=== PATIENT | female | born 1950 | race African-American/Black ===

== ENCOUNTER 2021-03-14 14:37 | Emergency (ER) | payer OTHER ==
[2021-03-14] MEDS ORDERED: NA CHLORIDE 0.9% 500 ML ONE (15:34)
[2021-03-14 15:37] LABS: Absolute Lymphocytes (CBC) 1.3 K/uL (0.7-4.9); Basophils % 0.1 % (0-1.3); Lymphocytes % 10.1 % (15.3-44.8); MPV 7.1 fL (7.6-11.3); RBC Red Blood Cell Count 2.11 M/uL (3.86-4.86)
[2021-03-14 15:47] LABS: Hematocrit 19.9 % (36.0-45.0)
[2021-03-14 15:54] LABS: Albumin 3.5 g/dL (3.4-5.0); Bilirubin Total 0.4 mg/dL (0.2-1.0); Potassium 4.2 mmol/L (3.5-5.1)
--- NOTE | 2021-03-14 16:00 | RAD REPORT ---
EXAM DESCRIPTION: RAD - Chest Single View - 03/14/2021 3:52 pm CLINICAL HISTORY: COUGH Chest pain. COMPARISON: No comparisons FINDINGS: Portable technique limits examination quality. The lungs are grossly clear. The heart is normal in size. No displaced fractures.Left-sided port cath eter with its tip in the region of the SVC/ right atrium junction. IMPRESSION: No acute intrathoracic process suspected.
--- NOTE | 2021-03-14 17:16 | ER ---
Nurse's Notes [facility] Name: Dennis Turk Age: 70 yrs Sex: Female : 1950 Arrival Date: 03/14/2021 Time: 14:41 Bed 7 Private MD: Diagnosis: Anemia, unspecified Presentation: 03/14 14:44 Chief complaint: Patient states: sent to ER for low hgb-6.8. Has been doing sv chemotherapy recently. Coronavirus screen: Client denies travel out of the [place] in the last 14 days. At this time, the client does not indicate any symptoms associated with coronavirus-19. The client reports previous COVID testing was negative. Date of collection: March 13, 2021. Ebola Screen: No symptoms or risks identified at this time. Initial Sepsis Screen: Does the patient meet any 2 criteria? HR > 90 bpm. No. Patient's initial sepsis screen is negative. Does the patient have a suspected source of infection? No. Patient's initial sepsis screen is negative. Risk Assessment: Do you want to hurt yourself or someone else? Patient reports no desire to harm self or others. Onset of symptoms was March 14, 2021. 14:44 Method Of Arrival: Ambulatory sv 14:44 Acuity: RICHA 2 sv Triage Assessment: 14:47 General: Appears in no apparent distress. comfortable, Behavior is calm, cooperative, sv appropriate for age. Pain: Denies pain. Neuro: Level of Consciousness is awake, alert, obeys commands, Oriented to person, place, time, situation, Gait is steady. Respiratory: Respiratory effort is even, unlabored. Historical: - Allergies: 14:47 No Known Allergies; sv - PMHx: 14:47 breast cancer; w/ recurrence; sv - PSHx: 14:47 right mastectomy; sv - Immunization history:: Client reports receiving the 2nd dose of the Covid vaccine, Client reports receiving the 1st dose of the Covid vaccine. - Social history:: Smoking status: Patient denies any tobacco usage or history of. - Family history:: not pertinent. Screenin:50 Abuse screen: Denies threats or abuse. Nutritional screening: No deficits noted. em Tuberculosis screening: No symptoms or risk factors identified. Fall Risk None identified. Assessment: 15:00 General: Appears in no apparent distress. comfortable, Behavior is calm, cooperative, em appropriate for age. Pain: Denies pain. Neuro: Level of Consciousness is awake, alert, obeys commands, Oriented to person, place, time, situation. Cardiovascular: Capillary refill < 3 seconds Patient's skin is warm and dry. Respiratory: Airway is patent Respiratory effort is even, unlabored, Respiratory pattern is regular, symmetrical. GI: Abdomen is flat, Reports nausea, Patient currently denies bloody stool. Derm: Skin is intact, is thin, Skin is pale, Skin temperature is warm. Musculoskeletal: Capillary refill < 3 seconds, Range of motion: intact in all extremities. 16:00 Reassessment: Patient appears in no apparent distress at this time. Patient and/or hb family updated on plan of care and expected duration. Pain level reassessed. Patient is alert, oriented x 3, equal unlabored respirations, skin warm/dry/pink. 17:27 Reassessment: Discharge ordered. awaiting PRBCs from blood bank and transfusion at this hb time. 19:00 General: Appears in no apparent distress. comfortable, Behavior is calm, cooperative, ea appropriate for age. Pain: Denies pain. Neuro: Level of Consciousness is awake, alert, obeys commands, Oriented to person, place, time, situation. Cardiovascular: Patient's skin is warm and dry. Respiratory: Airway is patent Respiratory effort is even, unlabored, Respiratory pattern is regular, symmetrical. Derm: Skin is intact, is thin, Skin is pale, Skin temperature is warm. Musculoskeletal: Range of motion: intact in all extremities. 19:04 Reassessment: Alberto [phone]. hb 20:00 Reassessment: Patient and/or family updated on plan of care and expected duration. Pain ea level reassessed. Pt alert and O x 3. Respirations even and unlabored, chest expansions even and symmetrical. Awaiting on transfusion to complete. 21:30 Reassessment: Patient and/or family updated on plan of care and expected duration. Pain ea level reassessed. Pt alert and O x 3. Respirations even and unlabored, chest expansions even and symmetrical. Awaiting on transfusion to complete. 22:30 Reassessment: Patient and/or family updated on plan of care and expected duration. Pain ea level reassessed. Pt resting with eyes closed. Respirations even and unlabored, chest expansions even and symmetrical. Awaiting on transfusion to complete. 23:31 Reassessment: Patient and/or family updated on plan of care and expected duration. Pain ea level reassessed. Pt alert and O x 3. Respirations even and unlabored, chest expansions even and symmetrical. Transfusion completed, pt tolerated well. Discharge instruction given to patient and family, both verbalized the understanding of instruction. Pt left ED via wheelchair accompanied by family, pt assisted to private vehicle per ED staff, pt tolerated well. Vital Signs: 14:44 BP 127 / 63; Pulse 120; Resp 18; Temp 98(O); Pulse Ox 100% on R/A; Weight 5.9 kg; sv Height 5 ft. 2 in. (157.48 cm); Pain 0/10; 16:18 BP 110 / 63; Pulse 83; Resp 19; Pulse Ox 100% on R/A; em 17:00 BP 99 / 51; Pulse 79; Resp 16; Pulse Ox 97% on R/A; hb 19:00 BP 94 / 56; Pulse 91; Resp 18; Temp 97.7; Pulse Ox 100% ; ea 20:20 BP 94 / 55; Pulse 80; Resp 16; Temp 97.6; Pulse Ox 100% ; ea 21:30 BP 98 / 58; Pulse 88; Resp 18; Pulse Ox 100% ; ea 23:15 BP 104 / 55; Pulse 80; Resp 18; Pulse Ox 99% on R/A; ea 14:44 Body Mass Index 2.38 (5.90 kg, 157.48 cm) sv ED Course: 14:41 Patient arrived in ED. ds1 14:46 Triage completed. sv 14:47 Arm band placed on. sv 14:49 Chavez Pinzon MD is Attending Physician. annette 14:50 Mehrdad Hernandez, RN is Primary Nurse. em 14:50 Patient has correct armband on for positive identification. Placed in gown. Bed in low em position. Adult w/ patient. 15:12 Missed attempt(s): 22 gauge in left forearm. Bleeding controlled, band aid applied, hb catheter tip intact. 15:16 Inserted saline lock: 22 gauge in left hand, using aseptic technique. Blood collected. hb 15:52 Chest Single View XRAY In Process Unspecified. EDMS 17:15 Lynne Carrasco MD is Referral Physician. annette 19:15 Primary Nurse role handed off by Mehrdad Hernadnez RN eb 23:29 No provider procedures requiring assistance completed. IV discontinued, intact, ea bleeding controlled, No redness/swelling at site. Pressure dressing applied. Administered Medications: 15:36 Drug: NS 0.9% 500 ml Route: IV; Rate: bolus; Site: left hand; hb Outcome: 17:15 Discharge ordered by . annette 23:29 Discharged to home ambulatory, with family. seth 23:29 Condition: stable 23:29 Discharge instructions given to patient, Instructed on discharge instructions, follow up and referral plans. Demonstrated understanding of instructions, follow-up care. 23:35 Patient left the ED. ea Signatures: Dispatcher [employer] Mag Ramirez RN Chavez Anderson MD MD cha Munoz, Edgar, RN Lilliana Joyner ds1 Sury Schultz RN RN hb Antunez, Elena, RN RN ea Botello, Elizabeth eb Corrections: (The following items were deleted from the chart) 15:32 15:12 Missed attempt(s): 22 gauge in right forearm. Bleeding controlled, band aid hb applied, catheter tip intact. hb
--- NOTE | 2021-03-14 17:16 | EDPHYS ---
Physician Documentation [facility] Name: Dennis Turk Age: 70 yrs Sex: Female : 1950 Arrival Date: 03/14/2021 Time: 14:41 Bed 7 Private MD: HERMELINDA Physician Chavez Pinzon HPI: 03/14 15:03 This 70 yrs old Black Female presents to ER via Ambulatory with complaints of Abnormal annette Lab Results. 15:03 ANEMIA 6.8. Onset: The symptoms/episode began/occurred 3 day(s) ago. Severity of annette symptoms: At their worst the symptoms were moderate in the emergency department the symptoms are unchanged. The patient has experienced similar episodes in the past, several times. Historical: - Allergies: 14:47 No Known Allergies; sv - PMHx: 14:47 breast cancer; w/ recurrence; sv - PSHx: 14:47 right mastectomy; sv - Immunization history:: Client reports receiving the 2nd dose of the Covid vaccine, Client reports receiving the 1st dose of the Covid vaccine. - Social history:: Smoking status: Patient denies any tobacco usage or history of. - Family history:: not pertinent. ROS: 15:03 Constitutional: Negative for fever, chills, and weight loss, Eyes: Negative for injury, annette pain, redness, and discharge, ENT: Negative for injury, pain, and discharge, Neck: Negative for injury, pain, and swelling, Respiratory: Negative for shortness of breath, cough, wheezing, and pleuritic chest pain, Abdomen/GI: Negative for abdominal pain, nausea, vomiting, diarrhea, and constipation, Back: Negative for injury and pain, : Negative for injury, bleeding, discharge, and swelling, MS/Extremity: Negative for injury and deformity, Skin: Negative for injury, rash, and discoloration, Neuro: Negative for headache, weakness, numbness, tingling, and seizure, Psych: Negative for depression, anxiety, suicide ideation, homicidal ideation, and hallucinations, Allergy/Immunology: Negative for hives, rash, and allergies, Endocrine: Negative for neck swelling, polydipsia, polyuria, polyphagia, and marked weight changes, Hematologic/Lymphatic: Negative for swollen nodes, abnormal bleeding, and unusual bruising. 15:03 Cardiovascular: Positive for palpitations. 15:03 Skin: Positive for pallor. Exam: 15:03 Constitutional: This is a well developed, well nourished patient who is awake, alert, annette and in no acute distress. Head/Face: Normocephalic, atraumatic. Eyes: Pupils equal round and reactive to light, extra-ocular motions intact. Lids and lashes normal. Conjunctiva and sclera are non-icteric and not injected. Cornea within normal limits. Periorbital areas with no swelling, redness, or edema. ENT: Nares patent. No nasal discharge, no septal abnormalities noted. Tympanic membranes are normal and external auditory canals are clear. Oropharynx with no redness, swelling, or masses, exudates, or evidence of obstruction, uvula midline. Mucous membranes moist. Neck: Trachea midline, no thyromegaly or masses palpated, and no cervical lymphadenopathy. Supple, full range of motion without nuchal rigidity, or vertebral point tenderness. No Meningismus. Chest/axilla: Normal chest wall appearance and motion. Nontender with no deformity. No lesions are appreciated. Respiratory: Lungs have equal breath sounds bilaterally, clear to auscultation and percussion. No rales, rhonchi or wheezes noted. No increased work of breathing, no retractions or nasal flaring. Abdomen/GI: Soft, non-tender, with normal bowel sounds. No distension or tympany. No guarding or rebound. No evidence of tenderness throughout. Back: No spinal tenderness. No costovertebral tenderness. Full range of motion. Female : Normal external genitalia. MS/ Extremity: Pulses equal, no cyanosis. Neurovascular intact. Full, normal range of motion. Neuro: Awake and alert, GCS 15, oriented to person, place, time, and situation. Cranial nerves II-XII grossly intact. Motor strength 5/5 in all extremities. Sensory grossly intact. Cerebellar exam normal. Normal gait. Psych: Awake, alert, with orientation to person, place and time. Behavior, mood, and affect are within normal limits. 15:03 Cardiovascular: Rate: tachycardic, Rhythm: regular, Pulses: Pulses are 4+ in bilateral radial, brachial, femoral, popliteal, posterior tibial and and dorsalis pedis arteries.. Heart sounds: normal, Edema: is not appreciated, JVD: is not appreciated. 16:05 ECG was reviewed by the Attending Physician. [facility] 17:16 Abdomen/GI: Inspection: abdomen appears normal, Bowel sounds: normal, Palpation: [facility] abdomen is soft and non-tender, Rectal exam: rectal tone normal, Stool: guaiac negative, hemorrhoid(s), are not appreciated, mass, is not appreciated, swelling, is not appreciated, Liver: no appreciated palpable abnormalities, Hernia: not appreciated. Vital Signs: 14:44 BP 127 / 63; Pulse 120; Resp 18; Temp 98(O); Pulse Ox 100% on R/A; Weight 5.9 kg; sv Height 5 ft. 2 in. (157.48 cm); Pain 0/10; 16:18 BP 110 / 63; Pulse 83; Resp 19; Pulse Ox 100% on R/A; em 17:00 BP 99 / 51; Pulse 79; Resp 16; Pulse Ox 97% on R/A; hb 19:00 BP 94 / 56; Pulse 91; Resp 18; Temp 97.7; Pulse Ox 100% ; ea 20:20 BP 94 / 55; Pulse 80; Resp 16; Temp 97.6; Pulse Ox 100% ; ea 21:30 BP 98 / 58; Pulse 88; Resp 18; Pulse Ox 100% ; ea 23:15 BP 104 / 55; Pulse 80; Resp 18; Pulse Ox 99% on R/A; ea 14:44 Body Mass Index 2.38 (5.90 kg, 157.48 cm) sv MDM: 14:49 Patient medically screened. [facility] 15:05 Data reviewed: vital signs, nurses notes, lab test result(s), EKG, radiologic studies, [facility] plain films. Data interpreted: shelter monitor: rate is 120 beats/min, rhythm is regular, Pulse oximetry: on room air is 100 %. Test interpretation: by ED physician or midlevel provider: ECG, plain radiologic studies. Counseling: I had a detailed discussion with the patient and/or guardian regarding: the historical points, exam findings, and any diagnostic results supporting the discharge/admit diagnosis, lab results, radiology results, the need for outpatient follow up, for definitive care, an phlebotomy manager. 03/14 15:02 Order name: CBC with Diff; Complete Time: 16:03 [facility] 03/14 15:02 Order name: Comprehensive Metabolic Panel; Complete Time: 16:03 [facility] 03/14 15:02 Order name: Type And Screen [facility] 03/14 15:03 Order name: Occult Blood--Ancillary ss 03/14 17:16 Order name: Packed RBC Leukored [facility] 03/14 17:43 Order name: ABO/RH no charge [facility] 03/14 15:02 Order name: EKG; Complete Time: 15:02 [facility] 03/14 15:02 Order name: EKG - Nurse/Tech; Complete Time: 15:36 [facility] 03/14 15:02 Order name: Chest Single View XRAY; Complete Time: 16:03 [facility] 03/14 15:56 Order name: Labs - recollect needed: recollect T\T\S tube is short; Complete Time: 16:56 eb 03/14 16:56 Order name: Diet Ada 2000 Dave; Complete Time: 16:57 em EC:05 Rate is 96 beats/min. Rhythm is regular. QRS [place] is Normal. [place] interval is normal. QRS annette interval is normal. QT interval is normal. No Q waves. T waves are Normal. ST Segment is depressed in leads I, II, III, aVF, V1, V2, V3, V4, V5, V6. Clinical impression: NSR w/ Non-specific ST/T Changes and No evidence of ischemia. Interpreted by me. Reviewed by me. Administered Medications: 15:36 Drug: NS 0.9% 500 ml Route: IV; Rate: bolus; Site: left hand; hb Disposition: 03/14/21 17:15 Discharged to Home. Impression: Anemia, unspecified. - Condition is Stable. - Discharge Instructions: Anemia, Nonspecific, Blood Transfusion, Adult, Blood Transfusion, [id number], Blood Transfusion, Care After, [id number], Blood Transfusion, Adult, Care After. - Medication Reconciliation Form, Thank You Letter, Antibiotic Education, Prescription Opioid Use form. - Follow up: Private Physician; When: 2 - 3 days; Reason: Recheck today's complaints, Continuance of care, Re-evaluation by your physician. Follow up: Lynne Gutierrez; When: 2 - 3 days; Reason: Recheck today's complaints, Re-evaluation by your physician. - Problem is new. - Symptoms have improved. Signatures: Dispatcher [employer] [facility] Mag Edge RN RN sv Anderson, Corey, MD MD cha Baxter, Heather RN Anneliese Bautista RN RN ea Botello, Elizabeth eb Corrections: (The following items were deleted from the chart) 23:35 17:15 03/14/2021 17:15 Discharged to Home. Impression: Anemia, unspecified. Condition ea is Stable. Discharge Instructions: Anemia, Nonspecific, Blood Transfusion, Adult, Blood Transfusion, [id number], Blood Transfusion, Care After, [id number], Blood Transfusion, Adult, Care After. Forms are Medication Reconciliation Form, Thank You Letter, Antibiotic Education, Prescription Opioid Use. Follow up: Private Physician; When: 2 - 3 days; Reason: Recheck today's complaints, Continuance of care, Re-evaluation by your physician. Follow up: Lynne Gutierrez; When: 2 - 3 days; Reason: Recheck today's complaints, Re-evaluation by your physician. Problem is new. Symptoms have improved. annette
[2021-03-14] MEDS ORDERED: NA CHLORIDE 0.9% 250 ML ONE (18:12)
[2021-03-14] MEDS ORDERED: ACETAMINOPHEN 325 MG TABLET ONE (18:21)
[2021-03-14] MEDS ORDERED: DIPHENHYDRAMINE 50 MG/ML VIAL ONE (18:21)
[2021-03-14 23:47] VITALS: TEMP 97.6
[2021-03-14 23:50] VITALS: BP 104/55; O2SAT 99
--- NOTE | 2021-03-15 10:38 | EKG ---
Test Date: 2021-03-14 Test Time: 15:10:46 Greens Laborer: ANSHUL MEASUREMENT RESULTS: Intervals: Rate: 96 TN: 114 QRSD: 74 QT: 350 QTc: 442 [place]: P: 73 TN: 114 QRS: 74 T: 69 INTERPRETIVE STATEMENTS: Normal sinus rhythm Nonspecific ST and T wave abnormality Abnormal ECG Compared to ECG 08/15/2005 07:30:00 ST (T wave) deviation now present Atrial premature complex(es) no longer present Electronically Signed On 03-15-21 10:36:37 CDT by Jeremy Prieto
== END 2021-03-14 23:35 | disposition home or self-care (01) ==
LOC: ER 14:37
PROC: 30233N1 Transfusion of Nonautologous Red Blood Cells into Peripheral Vein, Percutaneous Approach (ICD-10-PCS; principal; 2021-03-14)
DX: D64.9 Anemia, unspecified (principal); Z85.3 Personal history of malignant neoplasm of breast; Z90.11 Acquired absence of right breast and nipple
CPT/HCPCS: 93005; 85025; 36415; 86900; 86850; 86901; 80053; 71045; 99284; 36430; P9040; J1200; P9016; J7050; J7040